=== PATIENT | female | born 1955 | race Caucasian/White ===

== ENCOUNTER → 2020-01-22 | Outpatient (CLI) | payer MEDICARE ==
[~2020-01-22] MED LIST: ASPI81TA45 PO; ATOR40TA78 PO; CANA300T PO; DULA0.75 SC; GLIM4TAB8 PO; HYDR-3246 PO; INSU100I13 SC; LOSA50TA14 PO; METH4TAB7 PO; OXYC-432 PO; TIZA4TAB2 PO
[2020-01-22 12:08] LABS: BASOPHILS # (AUTO) 0.07 x10^3/uL (0-0.1); BASOPHILS % (AUTO) 1 % (0-1); EOSINOPHILS % (AUTO) 0 % (1-7); LYMPHOCYTES # (AUTO) 1.58 x10^3/uL (1-3.4); LYMPHOCYTES % (AUTO) 11 % (22-44); MD NO; MEAN CORPUSCULAR HEMOGLOBIN 30.4 pg (27.0-34.8); MEAN CORPUSCULAR HGB CONC 33.2 g/dL (32.4-35.8); MEAN CORPUSCULAR VOLUME 91.7 fL (80-100); MEAN PLATELET VOLUME 7.8 fL (7.4-10.4); MONOCYTES # (AUTO) 0.64 x10^3/uL (0.2-0.8); MONOCYTES % (AUTO) 4 % (2-9); NEUTROPHILS # (AUTO) 12.18 x10^3/uL (1.8-6.8); NEUTROPHILS % (AUTO) 84 % (42-75); PLATELET COUNT 524 x10^3/uL (130-400); RED BLOOD COUNT 5.43 x10^6/uL (3.82-5.3); RED CELL DISTRIBUTION WIDTH 14.1 % (9.6-15.2)
[2020-01-22 12:17] LABS: INTERNATIONAL NORMALIZED RATIO 0.97 (0.93-1.1); PROTHROMBIN TIME 10.3 Seconds (9.6-11.5)
[2020-01-22 13:04] LABS: CHLORIDE 105 mmol/L (98-107)
[2020-01-22 13:17] LABS: ALANINE AMINOTRANSFERASE 37 U/L (12-78); ALBUMIN 4.1 g/dL (3.4-5.0); ALKALINE PHOSPHATASE 380 U/L (45-117); ANION GAP 10 mmol/L (5-15); BILIRUBIN,TOTAL 0.8 mg/dL (0.2-1.0); CALCIUM 10.6 mg/dL (8.5-10.1); CREATININE 1.12 mg/dL (0.55-1.02); TOTAL PROTEIN 8.7 g/dL (6.4-8.2)
== END | disposition home or self-care (01) ==
LOC: STAR 11:16
PROVIDERS: ATTEND Neurological Surgery
DX: Z01.818 Encounter for other preprocedural examination (principal); M48.062 Spinal stenosis, lumbar region with neurogenic claudication
CPT/HCPCS: 36415; 71046; 80053; 85025; 85610; 85730; 93005

== ENCOUNTER 2020-01-27 07:21 | Day surgery (SDC) | payer MEDICARE ==
[~2020-01-27] VITALS: Ht 182.9 cm; Wt 94.9 kg
[2020-01-27] MEDS ORDERED: CHLORHEXIDINE 15 ML UDC MM STA (07:42)
[2020-01-27] MEDS: LACTATED RINGERS 1,000 ML IV SCH (08:46)
[2020-01-27] MEDS ORDERED: BACITRACIN 50,000 UNIT ONE (09:20)
[2020-01-27] MEDS ORDERED: BUPIVACAINE/PF-EPI 0.5% 1:200K ONE (09:20)
[2020-01-27] MEDS ORDERED: ACETAMINOPHEN 500 MG TABLET ONE (10:28)
[2020-01-27] MEDS ORDERED: GABAPENTIN 300 MG CAPSULE ONE (10:28)
[2020-01-27] MEDS ORDERED: FENTANYL PF 250 MCG/5ML ONE (10:37)
[2020-01-27] MEDS ORDERED: MIDAZOLAM 1 MG/ML, 2ML ONE (10:37)
[2020-01-27] MEDS ORDERED: MEPERIDINE/PF 25MG/0.5ML IVPush PRN (11:30)
[2020-01-27] MEDS ORDERED: KETOROLAC 30 MG/1 ML IV PRN (11:30)
[2020-01-27] MEDS ORDERED: hydrALAzine 20 MG/ML, 1ML IV PRN (11:30)
[2020-01-27] MEDS ORDERED: PROMETHAZINE 25 MG/ML, 1ML IV PRN (11:30)
[2020-01-27] MEDS ORDERED: ACETAMINOPHEN 325 MG TABLET PO PRN (11:30)
[2020-01-27] MEDS ORDERED: DIAZEPAM 5 MG/ML, 2ML IVPush PRN (11:30)
[2020-01-27] MEDS ORDERED: OXYcodone 5 MG/5 ML ORAL.SOL UDC PO PRN (11:30)
[2020-01-27] MEDS ORDERED: LABETALOL 5MG/ML, 20ML IV PRN (11:30)
[2020-01-27] MEDS ORDERED: FENTANYL PF 100 MCG/2ML IV PRN (11:30)
[2020-01-27] MEDS ORDERED: ALBUTEROL SULFATE 2.5 MG/3 ML NPPB PRN (11:30)
[2020-01-27] MEDS ORDERED: ONDANSETRON 2MG/ML, 2ML ONE (11:53)
[2020-01-27] MEDS ORDERED: SUCCINYLCHOLINE 20 MG/ML, 10ML ONE (11:53)
[2020-01-27] MEDS ORDERED: CEFAZOLIN 1,000 MG ONE (11:53)
[2020-01-27] MEDS ORDERED: GLYCOPYRROLATE 0.2MG/1ML, 5ML ONE (11:53)
[2020-01-27] MEDS ORDERED: SUGAMMADEX 200 MG/2 ML IVPush ONE (11:53)
[2020-01-27] MEDS ORDERED: NEOSTIGMINE 1 MG/ML, 10ML ONE (11:53)
[2020-01-27] MEDS ORDERED: PROPOFOL 10 MG/ML, 20ML ONE (11:53)
[2020-01-27] MEDS ORDERED: DEXAMETHASONE 4 MG/ML, 1ML ONE (11:53)
[2020-01-27] MEDS ORDERED: ROCURONIUM 10MG/ML,5ML ONE (11:53)
[2020-01-27] MEDS ORDERED: HYDROmorphone 1 MG/ML, 1ML INJ ONE (12:06)
[2020-01-27] MEDS ORDERED: OXYcodone 5 MG/5 ML ORAL.SOL UDC ONE (12:07)
[2020-01-27] MEDS: HYDROmorphone 2 MG/ML, 1ML IVPush PRN ×2 (12:27→12:46)
[2020-01-27] MEDS ORDERED: METHOCARBAMOL 750 MG TABLET PO PRN (12:30)
[2020-01-27 13:50] VITALS: BP 121/70
[2020-01-27] MEDS ORDERED: TRULICITY HOMEINJ SCH (14:00)
[2020-01-27] MEDS ORDERED: TIZANIDINE 4MG TABLET PO PRN ×2 (14:00→15:30)
[2020-01-27] MEDS ORDERED: CEFAZOLIN PMX 1GM/50ML 50 ML IVPB SCH (14:00)
[2020-01-27] MEDS ORDERED: PROMETHAZINE 25 MG/ML, 1ML IM PRN (14:00)
[2020-01-27] MEDS ORDERED: HYDROmorphone 2 MG/ML, 1ML IM PRN (14:00)
[2020-01-27] MEDS ORDERED: BISACODYL 10 MG SUPP PR PRN (14:00)
[2020-01-27] MEDS ORDERED: MAGNESIUM HYDROXIDE 8%, 30ML UDC PO PRN (14:00)
[2020-01-27] MEDS ORDERED: ONDANSETRON 2MG/ML, 2ML IV PRN (14:00)
[2020-01-27 14:47] VITALS: BP 113/68
[2020-01-27] MEDS: METHOCARBAMOL 750 MG TABLET PO SCH ×2 (15:21→22:00)
[2020-01-27] MEDS: CEFAZOLIN PMX 1GM/50ML 50 ML IVPB SCH (18:31)
[2020-01-27 18:37] VITALS: BP 129/72
[2020-01-27] MEDS ORDERED: INSULIN GLARGINE 100 UNITS/ML, PEN SQ-INSULIN SCH (21:00)
[2020-01-27] MEDS ORDERED: ATORVASTATIN 40 MG TABLET PO SCH (21:00)
[2020-01-28] MEDS: CEFAZOLIN PMX 1GM/50ML 50 ML IVPB SCH (04:15)
[2020-01-28 04:25] VITALS: BP 115/69
[2020-01-28] MEDS: METHOCARBAMOL 750 MG TABLET PO SCH ×2 (05:59→13:58)
[2020-01-28 06:25] VITALS: BP 119/58
[2020-01-28] MEDS ORDERED: INVOKANA 300 MG HOMEMEDPO SCH (09:00)
[2020-01-28] MEDS ORDERED: LOSARTAN 50MG TABLET PO SCH (09:00)
[2020-01-28] MEDS ORDERED: GLIMEPIRIDE 4 MG TABLET PO SCH (09:00)
[2020-01-28] MEDS ORDERED: SENNA/DOCUSATE TABLET PO SCH (09:00)
[2020-01-28] MEDS: OXYcodone/APAP 5/325MG TABLET PO PRN ×3 (09:06→16:44)
[2020-01-28 14:17] VITALS: BP 101/51
[2020-01-28] MEDS ORDERED: OXYcodone/APAP 5/325MG PO (15:56)
[2020-01-28] MEDS ORDERED: MORP-29 PO (15:56)
[2020-01-28 15:59] VITALS: BP 124/61
== END 2020-01-28 17:00 | disposition home or self-care (01) ==
LOC: OUT 07:21 → 4NE 13:26 → UNDOADMIN 13:33 → OUT 13:33 → 4NE 13:33 → OUT 01-28 17:00 → UNDODISIN 01-28 17:00
PROVIDERS: ATTEND Neurological Surgery
DX: M48.062 Spinal stenosis, lumbar region with neurogenic claudication (principal); Z11.59 Encounter for screening for other viral diseases; M54.16 Radiculopathy, lumbar region; I10 Essential (primary) hypertension; E78.5 Hyperlipidemia, unspecified; E11.9 Type 2 diabetes mellitus without complications; M81.0 Age-related osteoporosis without current pathological fracture; F17.210 Nicotine dependence, cigarettes, uncomplicated; Z79.4 Long term (current) use of insulin; Z79.84 Long term (current) use of oral hypoglycemic drugs; Z79.891 Long term (current) use of opiate analgesic; Z79.899 Other long term (current) drug therapy; Z88.8 Allergy status to other drugs, medicaments and biological substances; Z90.49 Acquired absence of other specified parts of digestive tract; Z98.890 Other specified postprocedural states; Z82.61 Family history of arthritis; Z83.3 Family history of diabetes mellitus; Z81.8 Family history of other mental and behavioral disorders; Z80.9 Family history of malignant neoplasm, unspecified
CPT/HCPCS: 36415; 63047; 63048; 72100; 82962; 87635; 97162; J0690; J1100; J1170; J1815; J2250; J2270; J2405; J2704; J3010; J7120; J7509; G0378; J2710; J0330